=== PATIENT | female | born 1990 | race African-American/Black ===

== ENCOUNTER 2020-01-17 15:49 | Emergency (ER) | payer MEDICAID ==
[~2020-01-17] VITALS: Ht 162.6 cm; Wt 59.0 kg
[~2020-01-17 15:49] MED LIST: BACTRIM-DS1 EA PO; KEFLEX500 MG ORAL; NKM; SULFAMETHOXAZO1 EACH PO
[2020-01-17 16:20] VITALS: BP 107/71
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
--- NOTE | 2020-01-17 16:43 | NUR ---
ED Nurse Note: Patient eloped, ERMD notified.
== END 2020-01-17 16:45 | disposition left against medical advice (07) ==
LOC: EMR 16:38
DX: Z53.21 Procedure and treatment not carried out due to patient leaving prior to being seen by health care provider (principal)